=== PATIENT | female | born 1970 | race Caucasian/White ===

== ENCOUNTER 2023-10-01 10:31 | Outpatient (CLI) | payer BC, SELFPAY ==
--- NOTE | ~2023-10-01 | CT_ITS ---
CT of the Abdomen and Pelvis: Indication: Abdominal pain Technique: 2.5 mm axial scans were obtained through the abdomen and pelvis following intravenous adm inistration of 100 cc of Omnipaque 350. Dose reduction technique was used on this scan by utilizing a utomated exposure control and iterative reconstruction technique. The dose-length product (DLP) was 3 59.89 mGy-cm. Findings: Scans through the lung bases demonstrate probable tree-in-bud opacities in the lingula. The liver, spleen, pancreas, gallbladder, adrenals and kidneys are within normal limits. There are at herosclerotic calcifications of the aorta. No lymphadenopathy. No bowel obstruction or bowel wall thickening. There is no evidence to suggest acute appendicitis. Images through the pelvis were performed. Urinary bladder unremarkable. No adnexal mass seen. No asci jonatan. Impression: Probable partially imaged tree-in-bud opacities in the lingula, consistent with small airways infecti ous process. No significant abnormality seen in the abdomen or pelvis otherwise. Reviewed, dictated and finalized at location . Impression: Probable partially imaged tree-in-bud opacities in the lingula, consistent with small airways infectious process. No significant abnormality seen in the abdomen or pelvis otherwise.
== END 2023-10-01 10:32 ==
LOC: MICIMG 10:33
PROVIDERS: PCP Surgery; Visit Provider Physician Assistant Medical
DX: R10.9 Unspecified abdominal pain (principal); K66.0 Peritoneal adhesions (postprocedural) (postinfection); R91.8 Other nonspecific abnormal finding of lung field
CPT/HCPCS: 74177; Q9967